=== PATIENT | male | born 1960 | race Caucasian/White ===

== ENCOUNTER 2023-08-29 23:24 | Observation (INO) | payer OTHER, SELFPAY ==
--- NOTE | ~2023-08-29 | CT_ITS ---
Non-contrast Head CT History: Facial droop Technique: Axial non-contrast imaging of the brain was performed. Dose reduction technique was used on this scan by utilizing automated exposure control and iterative reconstruction technique. The dose -length product (DLP) was 1286.33 mGy-cm. Findings: There is no evidence of intracranial hemorrhage, mass lesion, or acute infarct. Brain par enchyma appears normal. The ventricles and subarachnoid spaces are normal in size. The calvarium ap pears normal. The visualized paranasal sinuses and mastoid air cells are clear. Impression: No significant abnormality seen. Reviewed, dictated and finalized at location . Impression: No significant abnormality seen.
--- NOTE | ~2023-08-29 | MR_ITS ---
MRI of the brain Clinical History: TIA Technique: Axial and sagittal T1-weighted images were acquired. These were followed by axial T2-weigh ameya, diffusion weighted, gradient, and FLAIR images. Following intravenous administration of 20 cc Mu ltiHance gadolinium, T1-weighted fat-sat imaging was performed in the axial and coronal planes. Findings: There is wedge-shaped restricted diffusion at the anteroinferior right frontal lobe, consis tent with acute infarct. There is corresponding FLAIR hyperintense signal in this region. There are m oderate to severe chronic microvascular ischemic changes in the periventricular white matter otherwis e. No intracranial hemorrhage identified. Ventricles and subarachnoid spaces are unremarkable. Orbits are unremarkable. Paranasal sinuses and m astoid air cells are clear. Major intracranial flow voids are grossly intact. Sagittal midline structures are intact. IMPRESSION: Acute infarct at the anterior inferior right frontal lobe. No intracranial hemorrhage. Moderate to severe chronic microvascular ischemic changes. Reviewed, dictated and finalized at location M.
--- NOTE | ~2023-08-29 | XR_ITS ---
Portable chest x-ray Comparison: None Clinical History: Facial droop Findings: Right-sided Mediport is in satisfactory position. Small left pleural effusion is present w ith hazy left basilar airspace disease. Right lung is essentially clear. Cardiomediastinal silhouett e is stable. Bones and soft tissues are unremarkable. Impression: Small left pleural effusion with probable left basilar pulmonary edema/atelectasis. Correlate clinica lly for infection. Right-sided Mediport. Reviewed, dictated and finalized at location . Impression: Small left pleural effusion with probable left basilar pulmonary edema/atelecta sis. Correlate clinically for infection. Right-sided Mediport.
--- NOTE | 2023-08-29 23:27 | ECG_ITS ---
Measurements Intervals [place] Rate: 99 P: AL: 0 QRS: 56 QRSD: 112 T: -13 QT: 345 QTc: 443 Interpretive Statements ATRIAL FIBRILLATION ABNORMAL RHYTHM ECG NO PREVIOUS ECG AVAILABLE FOR COMPARISON Electronically Signed On 08-30-2023 16:52:57 CDT by Robert Mccormick M.D.
[2023-08-29 23:38] LABS: Basophils Percent Auto 0.4 % (0.2-1.2); Eosinophils Absolute Auto 0.1 K/mm3 (0-0.3); Eosinophils Percent Auto 2.1 % (0-4.4); Hematocrit 36.5 % (42.0-52.0); Hemoglobin 11.9 g/dL (14.0-18.0); Immature Granulocyte Absolute 0.01 K/mm3 (0.00-0.031); Immature Granulocyte Percent A 0.4 % (0-0.5); Lymphocytes Percent Auto 8.4 % (18.3-44.2); Mean Corpuscular HGB Conc 32.6 g/dl (32-36); Mean Corpuscular Hemoglobin 30.2 pg (26-34); Mean Corpuscular Volume 92.6 fl (80-100); Monocytes Absolute Auto 0.1 K/mm3 (0.1-0.6); Monocytes Percent Auto 2.5 % (2.6-8.5); Neutrophils Percent Auto 86.2 % (45.5-73.1); Platelet Count Result 158 k/mm3 (150-375); Red Blood Count 3.94 M/mm3 (4.6-6.20); Red Cell Distribution Width 17.8 % (11.5-14.5); White Blood Count 2.4 K/mm3 (4.5-10.0)
[2023-08-29 23:46] VITALS: BP 139/98; PULSE 100; PULSE 96; RESP 20; TEMP 36.6; O2SAT 100
[2023-08-29 23:49] VITALS: BP 139/98; PULSE 100; RESP 18; O2SAT 97
[2023-08-29 23:51] LABS: INR 0.9; Prothrombin Time 12.9 Seconds (11.1-14.7)
[2023-08-29 23:52] LABS: Partial Thromboplastin Time 24.3 SECONDS (22.3-36.8)
[2023-08-29 23:53] VITALS: BP 139/98; PULSE 104; RESP 24; O2SAT 96
[2023-08-30] VITALS (24 sets, daily range): BP systolic 122–143; BP diastolic 65–98; PULSE 81–107; RESP 13–27; TEMP 36.1–36.8; O2SAT 94–99; BMI 34.8
[2023-08-30 00:02] LABS: Alanine Aminotransferase 43 U/L (6-50); Albumin Level 3.3 g/dL (3.5-5.1); Alkaline Phosphatase 78 U/L (38-126); Anion Gap 2 mmol/L (8-16); Aspartate Amino Transferase 33 U/L (17-59); Bilirubin,Total 0.5 mg/dL (0.2-1.3); Blood Urea Nitrogen 27 mg/dL (9-20); Calcium 8.5 mg/dL (8.4-10.2); Carbon Dioxide 34 mmol/L (22-30); Chloride 102 mmol/L (98-107); Estimated CRCL calculation 95 ml/min; Estimated Glomerular Filt Rate > 60; Glucose 113 mg/dL (65-110); Potassium 3.6 mmol/L (3.4-5.0); Sodium 138 mmol/L (137-145)
[2023-08-30 00:14] LABS: Troponin I < 0.012 ng/mL (0.000-0.034)
--- NOTE | 2023-08-30 00:20 | ED.NEUROSD ---
HPI - Neuro Symptoms/Deficit General Chief Complaint: Suspected CVA Stated Complaint: facial droop Time Seen by Provider: 08/29/23 23:29 History of Present Illness HPI Narrative: Patient brought to the emergency department from home by EMS with concern for stroke. Patient has a history of lung cancer and has been getting chemotherapy and radiation daily. He has been tired the past few days. He went to sleep around 8:30 PM. heard him having a nightmare around 10 PM. She states he was difficult to arouse and she noticed left arm weakness initially. She helped him go to the bathroom and while he was able to ambulate she thought his left leg was weak. She got him back in bed and noticed his speech was also slurred. Called EMS at this time. EMS states he gradually improved during his transfer. Patient denies history of strokes. Related Data Home Medications Medication Instructions Recorded Confirmed albuterol sulfate 2.5 mg/3 mL 2.5 mg inhalation Q4H PRN lung 08/30/23 08/30/23 (0.083 %) solution for nebulization cancer aspirin 81 mg tablet 81 mg PO DAILY 08/30/23 08/30/23 finasteride 5 mg tablet 5 mg PO DAILY 08/30/23 08/30/23 furosemide 40 mg tablet 40 mg PO BID 08/30/23 08/30/23 loratadine 10 mg tablet 10 mg PO DAILY 08/30/23 08/30/23 metoprolol succinate 50 mg capsule 50 mg PO DAILY 08/30/23 08/30/23 sprinkle, ext. release 24 hr rosuvastatin 20 mg tablet 20 mg PO DAILY 08/30/23 08/30/23 tamsulosin 0.4 mg capsule mg PO 08/30/23 trazodone 50 mg tablet mg 08/30/23 Allergies Allergy/AdvReac Type Severity Reaction Status Date / Time No Known Allergies Allergy Verified 08/29/23 23:51 Review of Systems Review of Systems: Review of systems negative except what is documented in the HPI Exam Narrative: GENERAL: Well-appearing, well-nourished, and in no acute distress. HEAD: Normocephalic, atraumatic. EYES: PERRLA and EOMI. ENT: Nares clear, no rhinorrhea or epistaxis. Mucous membranes moist. NECK: Supple. CHEST: Clear to auscultation. No respiratory distress. HEART: Regular rate and rhythm. ABDOMEN: Soft, nontender, nondistended. EXTREMITIES: Normal range of motion. No edema. SKIN: Warm, dry, no rash. NEURO: No focal deficits. Alert and oriented x3. PSYCH: Normal mood and affect. Course Course Emergency Course: Differential diagnosis includes but not limited to stroke, seizure, reaction to chemo/radiation, infection Telemetry ordered due to CVA to evaluate for dysrhythmias. Evaluated by myself. Rhythm afib Rate 96 Vital Signs Vital signs: Vital Signs Temperature 36.6 C 08/29/23 23:46 Pulse Rate 96 08/29/23 23:46 Respiratory Rate 20 08/29/23 23:46 Blood Pressure 139/98 H 08/29/23 23:46 Pulse Oximetry 100 08/29/23 23:46 Oxygen Delivery Room Air 08/29/23 23:46 Temperature 36.6 C 08/29/23 23:46 Pulse Rate 96 08/30/23 01:31 Respiratory Rate 27 H 08/30/23 01:31 Blood Pressure 130/90 08/30/23 01:31 Pulse Oximetry 97 08/30/23 01:31 Oxygen Delivery Room Air 08/29/23 23:46 MDM - Neuro Symptoms/Deficit MDM Narrative Medical decision making narrative: Patient continues to be asymptomatic. Work-up grossly unremarkable. Discussed preferences with patient and his regarding admission here versus transfer to [facility]. He states his primary care doctor is in [place]. Also the oncologist is from [facility] and radiation therapy given by Dr. Larios at independent facility. They prefer to stay here for neurology evaluation in the morning. I consulted Dr. Boykin with neurology Lab Data 08/29/23 23:32 08/29/23 23:32 Labs: Lab Results 08/29/23 Range/Units 23:32 WBC 2.4 L (4.5-10.0) K/mm3 RBC 3.94 L (4.6-6.20) M/mm3 Hgb 11.9 L (14.0-18.0) g/dL Hct 36.5 L (42.0-52.0) % MCV 92.6 (80-100) fl MCH 30.2 (26-34) pg MCHC 32.6 (32-36) g/dl RDW 17.8 H (11.5-14.5) % Plt Count 158
[2023-08-30] MEDS: ASPIRIN 81 MG CHEWABLE TABLET 324 MG PO (02:50)
--- NOTE | 2023-08-30 03:30 | ADMGEN ---
This patient, Jabier Gordillo, was admitted to Medical Room 246-01. Patient/family oriented to hospital policies and general routines including ID bracelet, bed and alarms, visiting hours, pain management, procedures, bathroom and other care routines, personal items, smoking policy, room service/diet, and visiting hours. Information on how to activate the Rapid Response Team has been discussed. Patient/Family are encouraged to report perceived risks to care and to ask questions if they do not understand what they are told or what they should do.
--- NOTE | 2023-08-30 05:14 | PM.IMHP ---
H&P: HPI History of Present Illness Date/Time: 08/30/23 05:14 Chief Complaint: Left facial droop left arm weakness Narrative: 62-year-old male with a past medical history atrial fibrillation, BPH, and lung cancer who presented to the ER with left facial droop and left arm weakness. Patient reports that he went to bed around 20:30. He was having a nightmare around 10:00 o'clock and he was difficult to arouse. When he woke up to go to the bathroom his fiancee he noticed he was having left arm weakness and she thought that his left leg with a little bit weak. When she got back into bed she noticed that his speech was slurred. EMS arrived at the home and stated that the patient's neurological status improved on the way to the hospital. Patient arrived to the hospital around 11: 45 p.m.. The patient denies any residual symptoms. He did seem to have some slurred speech at time my evaluation but he reports that this is due to him having a recent dental extraction. He had was noted still have some mild left facial droop. He had no other localizing neurologic deficits remaining. Patient denies a known history of strokes. He does have a known history of atrial fibrillation. He was on Eliquis until a few years ago when insurance stopped paying for the Eliquis. At that time he was started on a baby aspirin daily. He reports that when he had his MediPort placed earlier this month or last month he quit taking his aspirin for the procedure in never restarted it. He reports that he cannot afford blood thinners until September 17 when his Medicare will kick in. He denies any headache, visual changes, changes in hearing or difficulty with word finding. He does snore. He has never had a sleep study. The patient was noted to be in AFib initial EKG in the ER. Patient remains in AFib on pen tender. He states that he never has symptoms of when he is in AFib. Review of Systems Review of Systems: 12 systems were reviewed with pertinent positives and negatives per HPI. Except as documented in the HPI, all other systems were reviewed and are negative. [facility] Past Medical History Medical History (Updated 08/30/23 @ 07:04 by Isis Scott DO) BPH (benign prostatic hyperplasia) Essential hypertension Hyperlipidemia Lung cancer Non-small cell lung cancer diagnosed July 2023 receiving chemotherapy and radiation therapy oncologist is at [facility] Paroxysmal A-fib Cardioversion 2018 Surgical History Surgical History (Updated 08/30/23 @ 06:56 by Isis Scott DO) History of tonsillectomy and adenoidectomy As a child Port-A-Cath in place (~08/2023) Right chest Status post cataract extraction and insertion of intraocular lens of right eye Family History Family History Father Colon cancer Mother Breast cancer Dementia Social History Social History (Updated 08/30/23 @ 06:51 by Isis Scott DO) Social History: He smoked pack of cigarettes per day. He quit smoking in 2013. He has 1 daughter and 1 son. Code status: Full code Surrogate decision maker: Jud Gordillo (significant other) Smoking packs per day: 1 Smoking cigarettes per day: 20.0 Years smoked: 30 Smoking pack-years: 30.00 Smoking status: Former smoker Tobacco type: cigarettes Alcohol intake: never Substance use: never Lack of Transportation: No Lack of Food: Never True Current Housing: I Have Housing Concerned About Future Housing: No Difficulty Paying Gas/Electric Bills: No Difficulty Paying for Meds: No Currently Unemployed: No Education: High School Diploma/GED Difficulty w/ Childcare or Family Care: No Additional living arrangements comments: He lives with Jud his significant other. Occupation/Education: retired Additional occupation/education comments: He is retired from [employer]. Spiritual care concerns: No Meds Home Medications
[2023-08-30 08:33] LABS: Hematocrit 34.9 % (42.0-52.0); Hemoglobin 11.3 g/dL (14.0-18.0); Mean Corpuscular HGB Conc 32.4 g/dl (32-36); Mean Corpuscular Hemoglobin 29.8 pg (26-34); Mean Corpuscular Volume 92.1 fl (80-100); Mean Platelet Volume 8.9 fl (7.4-10.4); Platelet Count Result 145 k/mm3 (150-375); Red Blood Count 3.79 M/mm3 (4.6-6.20); Red Cell Distribution Width 17.7 % (11.5-14.5); White Blood Count 2.4 K/mm3 (4.5-10.0)
[2023-08-30] MEDS: FUROSEMIDE 40 MG TABLET PO (08:34)
[2023-08-30] MEDS: ROSUVASTATIN 10 MG TABLET 20 MG PO (08:34)
[2023-08-30] MEDS: TAMSULOSIN HCL 0.4 MG CAPSULE PO (08:34)
[2023-08-30] MEDS: METOPROLOL SUCCINATE EXT REL 50 MG TABCR PO (08:34)
[2023-08-30] MEDS: FINASTERIDE 5 MG TABLET PO (08:34)
[2023-08-30] MEDS: LORATADINE 10 MG TABLET PO (08:34)
[2023-08-30] MEDS: FOLIC ACID 1 MG TABLET PO (08:34)
[2023-08-30 08:42] LABS: Alanine Aminotransferase 39 U/L (6-50); Albumin Level 3.2 g/dL (3.5-5.1); Alkaline Phosphatase 67 U/L (38-126); Anion Gap 4 mmol/L (8-16); Aspartate Amino Transferase 31 U/L (17-59); Bilirubin,Total 0.8 mg/dL (0.2-1.3); Blood Urea Nitrogen 20 mg/dL (9-20); Calcium 8.1 mg/dL (8.4-10.2); Carbon Dioxide 30 mmol/L (22-30); Chloride 103 mmol/L (98-107); Estimated CRCL calculation 124 ml/min; Estimated Glomerular Filt Rate > 60; Glucose 98 mg/dL (65-110); Potassium 3.6 mmol/L (3.4-5.0); Sodium 137 mmol/L (137-145)
--- NOTE | 2023-08-30 12:51 | PM.IMPN ---
Progress Note: A&P Assessment and Plan (1) CVA (cerebral vascular accident): Code(s): I63.9 - Cerebral infarction, unspecified Status: Acute Assessment and Plan: Patient presented with left-sided weakness and mild facial droop. Head CT with no significant abnormality. Brain MRI and acute infarct at the anterior inferior right frontal lobe and moderate to severe chronic microvascular ischemic changes. Lipid panel ordered. Patient has history of AFib, will need to be on Eliquis. Neurology consulted. PT and OT ordered. (2) Paroxysmal A-fib: Code(s): I48.0 - Paroxysmal atrial fibrillation Status: Acute Assessment and Plan: Patient discontinued his anticoagulation medication due to insurance not covering any longer. He was on aspirin but recently stopped taking that as well. Will need to be started on eliquis telemetry monitoring. (3) Lung cancer: Qualifiers: Laterality: unspecified laterality Lung location: unspecified part of lung Qualified Code(s): C34.90 - Malignant neoplasm of unspecified part of unspecified bronchus or lung Code(s): C34.90 - Malignant neoplasm of unspecified part of unspecified bronchus or lung Status: Acute Assessment and Plan: Patient with current lung cancer being treated with chemotherapy. The patient does have some leukopenia and anemia likely secondary to his current undergoing chemotherapy regimen. (4) BPH (benign prostatic hyperplasia): Qualifiers: Lower urinary tract symptom presence: unspecified whether lower urinary tract symptoms present Qualified Code(s): N40.0 - Benign prostatic hyperplasia without lower urinary tract symptoms Code(s): N40.0 - Benign prostatic hyperplasia without lower urinary tract symptoms Status: Acute Assessment and Plan: Continue finasteride and tamsulosin. (5) Essential hypertension: Code(s): I10 - Essential (primary) hypertension Status: Acute Assessment and Plan: Continue home hypertensive medication. Subjective Date/time seen: 08/30/23 12:51 Interval history: Patient sleeping 1 in the room. Patient still groggy. He does have some slurred speech although according the family this is normal for him. He has mild left hand weed controller weakness and slight facial droop. He is alert oriented x4. PT and OT ordered. Objective Data Vital Signs Vital Signs: Vital Signs - 24 hr 08/29/23 23:46 08/29/23 23:46 08/29/23 23:49 Temperature 97.8 F Pulse Rate 96 100 100 Respiratory Rate 20 18 Blood Pressure 139/98 H 139/98 H Pulse Oximetry 100 97 Oxygen Delivery Room Air 08/29/23 23:53 08/30/23 00:00 08/30/23 00:12 Temperature Pulse Rate 104 H 96 102 H Respiratory Rate 24 H 20 24 H Blood Pressure 139/98 H 131/86 Pulse Oximetry 96 96 96 Oxygen Delivery 08/30/23 00:15 08/30/23 00:16 08/30/23 00:30 Temperature Pulse Rate 105 H 96 90 Respiratory Rate 24 H 21 H 21 H Blood Pressure 132/89 Pulse Oximetry 96 97 96 Oxygen Delivery 08/30/23 00:31 08/30/23 00:45 08/30/23 00:47 Temperature Pulse Rate 96 Respiratory Rate 26 H Blood Pressure 122/82 143/98 H Pulse Oximetry 95 94 99 Oxygen Delivery 08/30/23 01:00 08/30/23 01:01 08/30/23 01:15 Temperature Pulse Rate 107 H 100 91 Respiratory Rate 27 H 19 22 H Blood Pressure 137/96 H Pulse Oximetry 97 96 96 Oxygen Delivery 08/30/23 01:16 08/30/23 01:30 08/30/23 01:31 Temperature Pulse Rate 101 H 97 96 Respiratory Rate 22 H 17 27 H Blood Pressure 129/80 130/90 Pulse Oximetry 95 95 97 Oxygen Delivery 08/30/23 03:20 08/30/23 03:39 08/30/23 03:49 Temperature 98.3 F 97.0 F L Pulse Rate 90 81 Respiratory Rate 13 16 Blood Pressure 135/65 122/85 Pulse Oximetry 99 98 Oxygen Delivery Room Air 08/30/23 04:00 08/30/23 08:34 08/30/23 08:00 Temperature Pulse Rate 81 101 H 1
[2023-08-30] MEDS: traZODone HCL 50 MG TABLET PO (20:46)
[2023-08-31] VITALS (7 sets, daily range): BP systolic 131; BP diastolic 81; PULSE 76–105; RESP 14–16; TEMP 36.9; O2SAT 96
[2023-08-31 05:57] LABS: Hematocrit 35.2 % (42.0-52.0); Hemoglobin 11.1 g/dL (14.0-18.0); Mean Corpuscular HGB Conc 31.5 g/dl (32-36); Mean Corpuscular Hemoglobin 29.6 pg (26-34); Mean Corpuscular Volume 93.9 fl (80-100); Platelet Count Result 133 k/mm3 (150-375); Red Blood Count 3.75 M/mm3 (4.6-6.20); Red Cell Distribution Width 17.5 % (11.5-14.5)
[2023-08-31 06:07] LABS: Anion Gap 7 mmol/L (8-16); Blood Urea Nitrogen 15 mg/dL (9-20); Calcium 8.1 mg/dL (8.4-10.2); Carbon Dioxide 26 mmol/L (22-30); Chloride 102 mmol/L (98-107); Cholesterol 120 mg/dL (0-200); Estimated CRCL calculation 124 ml/min; Estimated Glomerular Filt Rate > 60; Glucose 108 mg/dL (65-110); HDL Direct 42 mg/dL; Potassium 3.4 mmol/L (3.4-5.0); Sodium 135 mmol/L (137-145); Triglycerides 158 mg/dL (<150)
[2023-08-31 06:08] LABS: White Blood Count 1.3 K/mm3 (4.5-10.0)
[2023-08-31 06:18] LABS: LDL Cholesterol Direct 48 mg/dL
[2023-08-31 07:27] LABS: Hemoglobin A1C 6.6 % (<5.7)
[2023-08-31] MEDS: TAMSULOSIN HCL 0.4 MG CAPSULE PO (08:23)
[2023-08-31] MEDS: METOPROLOL SUCCINATE EXT REL 50 MG TABCR PO (08:23)
[2023-08-31] MEDS: ROSUVASTATIN 10 MG TABLET 20 MG PO (08:23)
[2023-08-31] MEDS: FUROSEMIDE 40 MG TABLET PO (08:24)
[2023-08-31] MEDS: ASPIRIN 81 MG ENTERIC TABLET PO (08:24)
[2023-08-31] MEDS: LORATADINE 10 MG TABLET PO (08:24)
[2023-08-31] MEDS: FOLIC ACID 1 MG TABLET PO (08:24)
[2023-08-31] MEDS: FINASTERIDE 5 MG TABLET PO (08:24)
--- NOTE | 2023-08-31 11:14 | WPDNEURCNPN ---
Assessment and Plan Assessment and plan (1) CVA (cerebral vascular accident): Code(s): I63.9 - Cerebral infarction, unspecified Status: Acute (2) Paroxysmal A-fib: Code(s): I48.0 - Paroxysmal atrial fibrillation Status: Acute (3) Lung cancer: Qualifiers: Laterality: unspecified laterality Lung location: unspecified part of lung Qualified Code(s): C34.90 - Malignant neoplasm of unspecified part of unspecified bronchus or lung Code(s): C34.90 - Malignant neoplasm of unspecified part of unspecified bronchus or lung Status: Acute Plan 1. TIA 2. Abnormal MRI with documented frontal lobe stroke 3. Ongoing history of carcinoma of the lung 4. History of atrial fibrillation in the past but not on the anticoagulation therapy consideration is being given to start the anticoagulation therapy. surface echocardiogram would be done. Consult date: 08/31/23 HPI: Jabier Gordillo is a 62 year old maleAdmitted to the hospital through the emergency room where he was brought from his room by EMS with the possibility of stroke. Patient carries the diagnosis of carcinoma of the lung and has been getting the chemotherapy and radiation treatment but over the last past few days he was extremely tired and night before he went to sleep around 8:30 p.m. subsequently his heard him having a nightmare around 10:00 p.m. though he was difficult to be aroused and she noted his left upper extremity was weak she helped him to go to the bathroom though he was able to ambulate but his left leg appeared to be somewhat weak and he has his speech was slurred. She called the EMS by the time they came his condition was gradually improving. He has been taking multiple medications at home which include aspirin 81 mg daily, furosemide 40 mg twice a day, metoprolol 50 mg daily, rosuvastatin 20 mg daily, trazodone 50 mg at night, he is not allergic to any medication his initial examination in the emergency room was nonfocal his vital signs were normal except blood pressure 139/98 but CBC reveals WBCs only 2.4 hemoglobin 11.9 and platelet count 158, basic metabolic panel was with BUN of 27 he was admitted to the hospital with the diagnosis of TIA was continued on the same medication what he had been taking. Further evaluation up until now included the MRI of the brain which revealed acute infarct in the anterior inferior right frontal lobe though his initial CT scan of the brain was negative for the bleed. Review of Systems Review of Systems: All systems reviewed & are unremarkable except as noted in HPI and below [facility] Past Medical History Medical History (Updated 08/30/23 @ 12:52 by Daiana Correa PA-C) BPH (benign prostatic hyperplasia) Essential hypertension Hyperlipidemia Lung cancer Non-small cell lung cancer diagnosed July 2023 receiving chemotherapy and radiation therapy oncologist is at [facility] Paroxysmal A-fib Cardioversion 2017 Surgical History Surgical History (Updated 08/30/23 @ 06:56 by Isis Scott DO) History of tonsillectomy and adenoidectomy As a child Port-A-Cath in place (~08/2023) Right chest Status post cataract extraction and insertion of intraocular lens of right eye Family History Family History Father Colon cancer Mother Breast cancer Dementia Social History Social History (Updated 08/30/23 @ 06:51 by Isis cSott DO) Social History: He smoked pack of cigarettes per day. He quit smoking in 2013. He has 1 daughter and 1 son. Code status: Full code Surrogate decision maker: Jud Gordillo (significant other) Smoking packs per day: 1 Smoking cigarettes per day: 20.0 Years smoked: 30 Smoking pack-years: 30.00 Smoking status: Former smoker Tobacco type: cigarettes Alcohol intake: never Substance use: never Lack of Transportation: No Lack of Food: Never True Current H
--- NOTE | 2023-08-31 13:50 | PM.DS ---
DS: Admitting Diagnosis Discharge Date 08/31/23 Admitting Diagnosis CVA DS: Discharge Diagnosis Discharge Diagnosis (1) CVA (cerebral vascular accident): Code(s): I63.9 - Cerebral infarction, unspecified Status: Acute (2) Paroxysmal A-fib: Code(s): I48.0 - Paroxysmal atrial fibrillation Status: Acute (3) Lung cancer: Qualifiers: Laterality: unspecified laterality Lung location: unspecified part of lung Qualified Code(s): C34.90 - Malignant neoplasm of unspecified part of unspecified bronchus or lung Code(s): C34.90 - Malignant neoplasm of unspecified part of unspecified bronchus or lung Status: Acute (4) BPH (benign prostatic hyperplasia): Qualifiers: Lower urinary tract symptom presence: unspecified whether lower urinary tract symptoms present Qualified Code(s): N40.0 - Benign prostatic hyperplasia without lower urinary tract symptoms Code(s): N40.0 - Benign prostatic hyperplasia without lower urinary tract symptoms Status: Acute (5) Essential hypertension: Code(s): I10 - Essential (primary) hypertension Status: Acute DS: Summary Hospital Course Hospital Course: this is a 62-year-old male with a past medical history of AFib not on anticoagulation medication, BPH and lung cancer the presented to the ED on 08/30/2023 due to left facial droop and left arm weakness. Patient has not been taking Eliquis for the past couple years due to not being able to afford it. He had been on baby aspirin but had discontinued due to recent lung biopsy and did not since restarted. He is currently undergoing chemotherapy for lung cancer. CT of the head with no CT abnormality. Patient ended for MRI. MRI showed acute infarct at the anterior inferior right frontal lobe and moderate to severe microvascular ischemic changes. Lipid panel showed mildly increased triglycerides and patient already on rosuvastatin 20 mg daily. Neurology consulted and recommended patient be put back on Eliquis. PT and OT did not believe patient needed any services at this time. Patient likely had stroke due to cancer and AFib (not being anticoagulated) . Patient did have some leukopenia this is likely a result from chemotherapy. He has been given coupons to help Eliquis become more affordable. Is advised a follow-up with Neurology and 6-8weeks. Time Spent with Patient Time attestation: Total time spent providing and/or coordinating discharge services: Exam Narrative: GENERAL: Comfortable, no acute distress HENMT: moist mucous membranes EYES: EOM intact b/l NECK: no lymphadenopathy RESPIRATORY: irregular rate and rhythm CARDIO: RRR GI: soft, nontender, bowel sounds present SKIN: no rashes EXTREMITIES: no edema, redness or tenderness DS: Data Data Completed and Pending Labs on day of discharge: Labs from last 24 hours 08/31/23 05:39 WBC 1.3 L* RBC 3.75 L Hgb 11.1 L Hct 35.2 L MCV 93.9 MCH 29.6 MCHC 31.5 L RDW 17.5 H Plt Count 133 L MPV 9.0 Sodium 135 L Potassium 3.4 Chloride 102 Carbon Dioxide 26 Anion Gap 7 L BUN 15 D Creatinine 0.60 L Estim Creat Clear Calc 124 Estimated GFR > 60 Glucose 108 Hemoglobin A1c 6.6 H Calcium 8.1 L Triglycerides 158 H Cholesterol 120 LDL Cholesterol Direct 48 HDL Direct 42 Preliminary micro results at discharge 08/30/23 05:11 Blood Culture - Preliminary Blood 08/30/23 04:56 Blood Culture - Preliminary Blood Discharge Plan Discharge Attending physician on discharge: Alonzo Sauer Consulting providers: Amairani Boykin Discharging Clinician: Daiana Correa Patient Disposition: Home, Self-Care Activity: as tolerated Diet: heart healthy Discharge Instructions: Eliquis 5 mg b.i.d. Continue rosuvastatin 20 mg daily Hold Aspirin 81 mg Take all medications as prescribed even if feeling better Eat well balanced meals and stay hydrated
== END 2023-08-31 14:40 | disposition home or self-care (01) ==
LOC: ANHED 08-30 02:21 → ANH2MED 08-30 03:21
PROVIDERS: Internal Medicine Critical Care Medicine; Admitting Provider Internal Medicine; Emergency Provider Emergency Medicine; PCP Internal Medicine; Visit Provider Internal Medicine
DX: I63.9 Cerebral infarction, unspecified (principal); I48.0 Paroxysmal atrial fibrillation; C34.90 Malignant neoplasm of unspecified part of unspecified bronchus or lung; R94.31 Abnormal electrocardiogram [ECG] [EKG]; N40.0 Benign prostatic hyperplasia without lower urinary tract symptoms; I10 Essential (primary) hypertension; R11.2 Nausea with vomiting, unspecified; Z95.9 Presence of cardiac and vascular implant and graft, unspecified; R06.83 Snoring; Z51.0 Encounter for antineoplastic radiation therapy; Z95.828 Presence of other vascular implants and grafts; Z79.51 Long term (current) use of inhaled steroids; Z79.60 Long term (current) use of unspecified immunomodulators and immunosuppressants; Z79.82 Long term (current) use of aspirin; Z79.899 Other long term (current) drug therapy; Z87.891 Personal history of nicotine dependence
CPT/HCPCS: 36415; 70450; 70553; 71045; 80048; 80053; 80061; 83036; 84484; 85025; 85027; 85610; 85730; 87040; 93005; 97161; 97165; 99285; A9270; A9577; G0378